=== PATIENT | female | born 1960 ===

== ENCOUNTER 2024-11-01 21:07 | Inpatient (IN) | payer OTHER, SELFPAY ==
[2024-11-01 20:00] VITALS: BP 157/85; PULSE 60; RESP 16; TEMP 36.7; O2SAT 98
[2024-11-01 22:16] VITALS: BMI 18.0
--- NOTE | 2024-11-02 01:12 | PC.ADMIT ---
Pt is a 65 yo female, admitted from [facility] on a 12b for treatment of MDD. She has HX of fibromyalgia/chronic pain, personality d/o, anxiety d/o, ADHD, and ?abdulaziz. She was presented to [facility] with disorganization, mot caring for self, non-medication compliance, and SI. She was reported with primary psychiatric complaints. Medical screen was notable for alcohol. Per unit assessment, Pt was calm and cooperative, A&O X4 but later became anxious and agitated due to the loud noises from a peer outburst/agitation on the hallway. She denies SI/HI/AV/VH. She states I only takes alcohol 6 times in a year and I don't know why they lie that I was intoxicated with alcohol Toxicology was positive for Cannabis, Opiates, Benzo and Ethanol. Pt declined to sign/fill any admission paper work. She c/o chronic headache and insomnia but refused all meds offered. She states all these meds does not work for me . She has a lists of allergies like Melatonin, Stratorra, Motrin, PARMINDER-inhibitors, and iodine. She requested for Dilaudid. Skin/safety check was unremarkable with the exception of scar over the body. She is a high fall risk due to hx of falls at home. Treatment plans and safety tools done, hospitalist contacted for consultation.
[2024-11-02] MEDS: Acetaminophen 325 MG TABLET 650 MG PO (03:53)
[2024-11-02 07:45] VITALS: BP 101/65; PULSE 75; RESP 14; RESP 16; TEMP 37.2; O2SAT 97
[2024-11-02 08:37] LABS: Estimated Average Glucose 105 mg/dL; Hemoglobin A1c % 5.3 % (<6.0)
[2024-11-02 08:54] LABS: Cholesterol 307 mg/dL (<200); HDL Cholesterol 52 mg/dL (>40); LDL Cholesterol Calculated 209 mg/dL (<100); Magnesium 2.1 mg/dL (1.6-2.6); Triglycerides 231 mg/dL (<150)
--- NOTE | 2024-11-02 08:56 | HO.PSYADMNOT ---
HPI Date of Service: 11/02/24 Chief Complaint: Recurrent Major Depression, Alcohol Use Disorder Sources of Information: patient interviewed, chart reviewed and crisis/core team assessment reviewed HPI Subjective Notes: Humphries Warning and Section 12B Narrative: Patient is a 63-year-old female with history of MDD, TRAY, ADHD, borderline personality disorder and alcohol use d/o who was brought in by ambulance to ER d/t suicidal ideation and alcohol intoxication secondary to medication noncompliance, falls and chronic pain. Per crisis report, patient was brought in by ambulance to [facility] for alcohol intoxication, falls and chronic pain. Patient reports that she drank alcohol to stop the pain. She denied SI while talking to the ED staff. Patient reports that she had fallen 4 times at home. Her EVENING OR NIGHT NURSE SUPERVISOR, June, reports patient made a suicidal statement that she wanted to be with her mother, father and brother who have all passed. Her EVENING OR NIGHT NURSE SUPERVISOR reports patient drank 12 alcoholic drinks yesterday and her cannabis use has increased. She has also been off her medications for 5 days and is not using them as prescribed. Her previous EVENING OR NIGHT NURSE SUPERVISOR reports patient texted her saying, I am suicidal, lonely and no one loves me. I miss my son and can not live without him. I want to be with my parents and brother . History of multiple inpatient psychiatric hospitalizations. Patient has psychiatric providers through the [facility]. hx of 1 SA at age 16 via OD on medications. denies hx of SIB. Utox positive for cannabis, opiates, benzodiazepines. ethanol level 153 on arrival to ER on 10/31/24. During admission assessment, pt presents alert and oriented x3. Calm and cooperative. Patient reports feeling anxious and depressed d/t her medical conditions. Patient stated, I fell 4 times at home and grabbed to drinks to help the pain. My aide came and she called the ambulance. I'm not suicidal. I have borderline personality disorder. All I said was if I was I wouldn't feel the pain. What is wrong with you people? . Patient reports she did not have 12 alcoholic beverages and has not been taking her psychiatric medications due to not having refills . Patient reports she only drinks alcohol 5 times a year and this was 1 of those times because she fell . Patient continues to adamantly deny suicidal ideation. Denies HI/VH/AH. Patient declined to sign conditional voluntary. Past Psychiatric History: Outpatient providers through [facility]. Psychologist: Dr. Elo Canada Psychiatrist: unknown History of multiple inpatient psychiatric hospitalizations Denies history of SIB. Patient reports 1 suicide attempt at the age of 16 via overdose on pills which she reports she did for attention . Medical Evaluation Reviewed: Yes PMFSH Family History: Patient is estranged from her 2 children. Parents are . Brother completed suicide. Social History: Lives alone. Has a EVENING OR NIGHT NURSE SUPERVISOR. . Two adult children. Disability. Substance History: Alcohol use disorder and cannabis use. Trauma History: Yes Diagnostics Vital Signs (24Hr): Vital Signs - 24 hr 11/01/24 20:00 11/02/24 07:45 Temperature 98.1 F 98.9 F Pulse Rate 60 75 Respiratory Rate 16 14 Blood Pressure 157/85 H 101/65 Pulse Oximetry 98 97 Oxygen Delivery Method Room Air Room Air BMI result Body Mass Index 18.0 Labs Labs: Laboratory Results - last 48 hr 11/02/24 08:10 Estimat Average Glucose 105 Hemoglobin A1c % 5.3 Magnesium 2.1 Triglycerides 231 H Cholesterol 307 H LDL Cholesterol, Calc 209 H HDL Cholesterol 52 Meds/Allergies Meds Home Medications ?Medication ?Instructions ?Recorded ?Confirmed ?Type acetaminophen 500 mg tablet 1,000 mg PO Q8H PRN Pain 11/02/24 11/02/24 History albuterol sulfate 90 mcg/actuation 2 puff inhalation Q4H PRN wheezing 11/02/24 11/02/24 History aerosol inhaler amlodipine 5 mg tablet 5 mg PO DAILY 11/02/24 11/02/24 History atenolol 25 mg tablet 25 mg PO BID 11/02/24 11/02/24 History baclofen 10 mg tablet 10 mg PO TID PRN Muscle Spasm 11/02/24 11/02/24 History budesonide 32 mcg/actuation nasal 2 spray intranasal DAILY 11/02/24 11/02/24 History spray calcium carbonate 260 mg PO BID 11/02/24 11/02/24 History cyanocobalamin (vitamin B-12) 500 500 mcg PO DAILY 11/02/24 11/02/24 History mcg tablet dextroamphetamine-amphetamine 10 10 mg PO BID 11/02/24 11/02/24 History mg tablet dextroamphetamine-amphetamine ER 20 mg PO DAILY 11/02/24 11/02/24 History 20 mg 24hr capsule,extend release diazepam 10 mg tablet 10 mg PO BID PRN Anxiety 11/02/24 11/02/24 History hydroxyzine HCl 25 mg tablet 25 mg PO BID PRN Anxiety 11/02/24 11/02/24 History ketotifen fumarate 0.025 % (0.035 1 drp ophthalmic (eye) BID PRN 11/02/24 11/02/24 History %) eye drops Allergy Symptoms lidocaine 5 % topical ointment 1 appl topical QID PRN painful 11/02/24 11/02/24 History areas magnesium oxide 420 mg tablet 420 mg PO DAILY 11/02/24 11/02/24 History mupirocin 2 % topical ointment 1 appl topical BID PRN skin 11/02/24 11/02/24 History infection rizatriptan 5 mg disintegrating 5 mg PO DAILY PRN Headache 11/02/24 11/02/24 History tablet sodium chloride 0.65 % nasal spray 2 spray intranasal TID PRN stuffy 11/02/24 11/02/24 History aerosol nose triamcinolone acetonide 0.5 % 1 appl topical BID PRN Itching 11/02/24 11/02/24 History topical ointment Allergies Allergies Allergy/AdvReac Type Severity Reaction Status Date / Time melatonin Allergy Mild Anaphylaxis Verified 11/01/24 23:53 NSAIDS (Non-Steroidal Allergy Mild Anaphylaxis Verified 11/01/24 23:53 Anti-Inflamma aspirin Allergy Unknown Unknown Verified 11/02/24 15:03 latex Allergy Unknown Unknown Verified 11/02/24 15:02 risperidone Allergy Unknown Unknown Verified 11/02/24 15:02 shellfish derived Allergy Unknown Unknown Verified 11/02/24 15:02 atomoxetine [From Strattera] Allergy Anaphylaxis Verified 11/01/24 23:53 iodine Allergy Anaphylaxis Verified 11/01/24 23:53 ibuprofen [From Motrin] AdvReac Intermediate Anaphylaxis Verified 11/01/24 23:53 PARMINDER Inhibitors AdvReac Angioedema Verified 11/01/24 23:[address] contrast AdvReac Facial Uncoded 11/01/24 23:53 Swelling Mental Status Exam Mental Status Exam Narrative: Pt is alert and oriented; behavior is cooperative, and calm; dressed in casual attire; mood is described as anxious ; eye contact appropriate; Speech is normal rate, volume and not pressured; thought process is organized; Thought content is on tx; otherwise pertinent to relevant topics and without any delusional content, paranoid ideations or grandiosity; denies SI/HI/VH/AH. Assessment & Plan Assessment & Plan (1) MDD (major depressive disorder), recurrent episode: Status: Acute Code(s): F33.9 - Major depressive disorder, recurrent, unspecified (2) TRAY (generalized anxiety disorder): Status: Acute Code(s): F41.1 - Generalized anxiety disorder (3) ADHD: Status: Acute Code(s): F90.9 - Attention-deficit hyperactivity disorder, unspecified type (4) Borderline personality disorder: Status: Acute Code(s): F60.3 - Borderline personality disorder (5) Alcohol use disorder: Status: Acute Code(s): F10.90 - Alcohol use, unspecified, uncomplicated Plan Patient is a 63-year-old female with history of MDD, TRAY, ADHD, borderline personality disorder and alcohol use d/o who was brought in by ambulance to ER d/t suicidal ideation and alcohol intoxication secondary to medication noncompliance, falls and chronic pain. Plan: 12B up on 11/07/24 5 minute safety checks Continue home medications CIWA obtain collateral encourage groups discharge planning Patient educated on: diagnosis and medication risk/benefits Reason for continued inpatient stay Substantial Risk for: med/psych decompensation Statement Statement: I have reviewed the history and physical and performed a pertinent examination on my patient. No changes have occurred unless specified. If the History and Physical was not performed prior to admission, the Hospitalist's service will be consulted for completing the admission physical. Time Spent With Patient Time: Total time managing care of this patient today _60___ minutes.
[2024-11-02 09:12] LABS: Free T4 (Free Thyroxine) 0.94 ng/dL (0.71-1.85); Thyroid Stimulating Hormone 2.31 uIU/mL (0.32-4.0)
[2024-11-02 09:23] LABS: Folate 5.2 ng/mL (> or = 4.0); Vitamin B12 987 pg/mL (200-900)
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
--- NOTE | 2024-11-02 12:08 | PHA.MEDREC ---
Pharmacy Consult ? Medication Reconciliation Pharmacy has reviewed the medication reconciliation completed by nursing, utilized list from [place].
[2024-11-02 12:18] VITALS: BP 130/61; PULSE 101
[2024-11-02] MEDS: Dextroamphetamine/Amphetamine XR 10 MG CAP.ER.24H 20 MG PO (12:38)
[2024-11-02] MEDS: hydrOXYzine HCL 25 MG TABLET PO ×2 (12:38→20:54)
[2024-11-02] MEDS: Cyanocobalamin (Vitamin B-12) 500 MCG TABLET PO (12:39)
[2024-11-02] MEDS: Acetaminophen 325 MG TABLET 975 MG PO ×2 (12:39→21:08)
[2024-11-02] MEDS: atenoloL 25 MG TABLET PO ×2 (12:40→20:54)
[2024-11-02] MEDS: Baclofen 10 MG TABLET PO ×2 (13:35→21:03)
[2024-11-02] MEDS: Albuterol Sulfate 90 MCG 8 GM INHALER 2 PUFF INHALE (13:36)
[2024-11-02] MEDS: LORazepam 1 MG TABLET PO ×2 (16:07→21:03)
[2024-11-02 20:05] VITALS: BP 128/71; PULSE 85; TEMP 36.2; O2SAT 99
[2024-11-02] MEDS: Atorvastatin Calcium 10 MG TABLET PO (20:54)
[2024-11-02] MEDS: Magnesium Oxide 400 MG TABLET PO (21:03)
[2024-11-02] MEDS: amLODIPine Besylate 5 MG TABLET PO (21:03)
[2024-11-02] MEDS: Calcium Oyster Shell Elemental 500 MG TABLET PO (21:03)
[2024-11-03] MEDS: Acetaminophen 325 MG TABLET 975 MG PO ×2 (07:17→17:22)
[2024-11-03] MEDS: Baclofen 10 MG TABLET PO ×3 (07:17→21:15)
[2024-11-03 08:00] VITALS: BP 111/68; PULSE 72; RESP 16; TEMP 36.5; O2SAT 98
[2024-11-03] MEDS: Dextroamphetamine/Amphetamine XR 10 MG CAP.ER.24H 20 MG PO (08:25)
[2024-11-03] MEDS: Cyanocobalamin (Vitamin B-12) 500 MCG TABLET PO (08:26)
[2024-11-03] MEDS: Thiamine HCL 100 MG TABLET PO (08:26)
[2024-11-03] MEDS: Calcium Oyster Shell Elemental 500 MG TABLET PO ×2 (08:26→20:56)
[2024-11-03] MEDS: atenoloL 25 MG TABLET PO ×2 (08:27→21:02)
[2024-11-03] MEDS: LORazepam 1 MG TABLET PO ×2 (08:39→21:03)
--- NOTE | 2024-11-03 13:28 | P.PNPSI_ITS ---
Subjective Subjective Date of Service: 11/03/24 Reason For Visit: Recurrent Major Depression, Alcohol Use Disorder Subjective Notes: Section 12B Interim History: Active on unit, social with peers. attending groups. Patient reports feeling frustrated d/t being on the unit. Pt stated, I don't have depression. I have borderline personality disorder. I don't need medication for my mood . denies SI/HI/VH/AH. Pt reports she feel she is integrating well into the unit . Per nursing, slept 5 hours last night. Continue current tx plan. Medication Compliance: Yes Side effects from medications: No Attending Groups: Yes Mental Status Exam Mental Status Exam Narrative: Pt is alert and oriented; behavior is cooperative, and calm; dressed in casual attire; mood is described as frustrated ; eye contact appropriate; Speech is normal rate, volume and not pressured; thought process is organized; Thought content is on tx; denies SI/HI/VH/AH. Diagnostics Vital Signs (24Hr): Vital Signs - 24 hr 11/02/24 20:05 11/03/24 08:00 Temperature 97.1 F 97.7 F Pulse Rate 85 72 Respiratory Rate 16 Blood Pressure 128/71 111/68 Pulse Oximetry 99 98 Oxygen Delivery Method Room Air Room Air BMI result Body Mass Index 18.0 Labs Labs: Laboratory Results - last 48 hr 11/02/24 08:10 Estimat Average Glucose 105 Hemoglobin A1c % 5.3 Magnesium 2.1 Triglycerides 231 H Cholesterol 307 H LDL Cholesterol, Calc 209 H HDL Cholesterol 52 Vitamin B12 987 H Folate 5.2 TSH 2.31 Free T4 0.94 Medications Medications Current Medications Acetaminophen (Acetaminophen 325 Mg Tablet) 975 mg PO Q8H PRN PRN Reason: Pain Last Admin: 11/03/24 07:17 Dose: 975 mg Al Hydroxide/Mg Hydroxide (Magnesium Hydrox/Alum Hydrox 30 Ml Oral.Susp) 30 ml PO Q6H PRN PRN Reason: Heartburn/Nausea Albuterol Sulfate (Albuterol Sulfate 90 Mcg 8 Gm Inhaler) 2 puff INHALE Q4H PRN PRN Reason: wheezing Last Admin: 11/02/24 13:36 Dose: 2 puff Amlodipine Besylate (Amlodipine Besylate 5 Mg Tablet) 5 mg PO BEDTIME [facility]; Protocol Last Admin: 11/02/24 21:03 Dose: 5 mg Amphetamine/Dextroamphetamine (Dextroamphetamine/Amphetamine Xr 10 Mg Cap.Er.24h) 20 mg PO DAILY [facility] Last Admin: 11/03/24 08:25 Dose: 20 mg Atenolol (Atenolol 25 Mg Tablet) 25 mg PO BID [facility]; Protocol Last Admin: 11/03/24 08:27 Dose: 25 mg Atorvastatin Calcium (Atorvastatin Calcium 10 Mg Tablet) 10 mg PO BEDTIME [facility] Last Admin: 11/02/24 20:54 Dose: 10 mg Baclofen (Baclofen 10 Mg Tablet) 10 mg PO TID PRN PRN Reason: Muscle Spasm Last Admin: 11/03/24 07:17 Dose: 10 mg Calcium Carbonate (Calcium Oyster Shell Elemental 500 Mg Tablet) 500 mg PO BID [facility] Last Admin: 11/03/24 08:26 Dose: 500 mg Cyanocobalamin (Cyanocobalamin (Vitamin B-12) 500 Mcg Tablet) 500 mcg PO DAILY [facility] Last Admin: 11/03/24 08:26 Dose: 500 mcg Diazepam (Diazepam 5 Mg Tablet) 10 mg PO BID PRN PRN Reason: Anxiety Fluticasone Propionate (Fluticasone Propionate Nasal 16 Gm [place]) 2 spray NOSTRIL-B DAILY [facility] Last Admin: 11/03/24 08:28 Dose: Not Given Hydroxyzine HCl (Hydroxyzine Hcl 25 Mg Tablet) 25 mg PO Q6H PRN PRN Reason: mild anxiety Last Admin: 11/02/24 20:54 Dose: 25 mg Ketotifen Fumarate (Ketotifen Fumarate 0.025% Oph 5 Ml Drpbtl) 1 drop EYE-BOTH BID PRN PRN Reason: Allergy Symptoms Lidocaine (Lidocaine 5 % Ointment 35 Gm) 1 appl TOPICAL QID PRN; Protocol PRN Reason: painful areas Lorazepam (Lorazepam 1 Mg Tablet) 1 mg PO Q2H PRN PRN Reason: CIWA 8-11 Last Admin: 11/03/24 08:39 Dose: 1 mg Lorazepam (Lorazepam 1 Mg Tablet) 2 mg PO Q2H PRN PRN Reason: CIWA 12-15 Lorazepam (Lorazepam 1 Mg Tablet) 3 mg PO Q2H PRN PRN Reason: CIWA > 15, and call Magnesium Hydroxide (Milk Of Magnesia 30 Ml Oral.Susp) 30 ml PO DAILY PRN PRN Reason: Constipation Magnesium Oxide (Magnesium Oxide 400 Mg Tablet) 400 mg PO BEDTIME [facility] Last Admin: 11/02/24 21:03 Dose: 400 mg Mupirocin (Mupirocin 2 % Oint 22 Gm Tube) 1 appl TOPICAL BID PRN; Protocol PRN Reason: skin infection Nicotine Polacrilex (Nicotine Polacrilex 2 Mg Gum) 4 mg BUCCAL Q2H PRN PRN Reason: Nicotine Cravings Non-Formulary Medication (Ofloxacin Otic) 10 drop EAR-BOTH BID [facility] Non-Formulary Medication (Rizatriptan) 5 mg PO DAILY PRN PRN Reason: Headache Sodium Chloride (Sodium Chloride 0.65 % Nasal 44 Ml Sprbtl) 2 spray NOSTRIL-B TID PRN PRN Reason: stuffy nose Thiamine HCl (Thiamine Hcl 100 Mg Tablet) 100 mg PO DAILY [facility] Last Admin: 11/03/24 08:26 Dose: 100 mg Trazodone HCl (Trazodone Hcl 50 Mg Tablet) 50 mg PO BEDTIME MRX1 PRN PRN Reason: Insomnia Triamcinolone Acetonide (Triamcinolone Acet 0.5 % Oint 15 Gm Tube) 1 appl TOPICAL BID PRN PRN Reason: Itching Allergies Allergies Allergy/AdvReac Type Severity Reaction Status Date / Time melatonin Allergy Mild Anaphylaxis Verified 11/01/24 23:53 NSAIDS (Non-Steroidal Allergy Mild Anaphylaxis Verified 11/01/24 23:53 Anti-Inflamma aspirin Allergy Unknown Unknown Verified 11/02/24 15:03 latex Allergy Unknown Unknown Verified 11/02/24 15:02 risperidone Allergy Unknown Unknown Verified 11/02/24 15:02 shellfish derived Allergy Unknown Unknown Verified 11/02/24 15:02 atomoxetine [From Strattera] Allergy Anaphylaxis Verified 11/01/24 23:53 iodine Allergy Anaphylaxis Verified 11/01/24 23:53 ibuprofen [From Motrin] AdvReac Intermediate Anaphylaxis Verified 11/01/24 23:53 PARMINDER Inhibitors AdvReac Angioedema Verified 11/01/24 23:[address] contrast AdvReac Facial Uncoded 11/01/24 23:53 Swelling Assessment & Plan Assessment & Plan (1) MDD (major depressive disorder), recurrent episode: Status: Acute Code(s): F33.9 - Major depressive disorder, recurrent, unspecified (2) TRAY (generalized anxiety disorder): Status: Acute Code(s): F41.1 - Generalized anxiety disorder (3) ADHD: Status: Acute Code(s): F90.9 - Attention-deficit hyperactivity disorder, unspecified type (4) Borderline personality disorder: Status: Acute Code(s): F60.3 - Borderline personality disorder (5) Alcohol use disorder: Status: Acute Code(s): F10.90 - Alcohol use, unspecified, uncomplicated Plan Patient is a 63-year-old female with history of MDD, TRAY, ADHD, borderline p ersonality disorder and alcohol use d/o who was brought in by ambulance to ER d/t suicidal ideation and alcohol intoxication secondary to medication noncompliance, falls and chronic pain. Plan: 12B up on 11/07/24 5 minute safety checks Continue home medications CIWA obtain collateral encourage groups discharge planning 11/03: Active on unit, social with peers. attending groups. Patient reports feeling frustrated d/t being on the unit. Pt stated, I don't have depression. I have borderline personality disorder. I don't need medication for my mood . denies SI/HI/VH/AH. Pt reports she feel she is integrating well into the unit . Per nursing, slept 5 hours last night. Continue current tx plan. Patient educated on: diagnosis, medication risk/benefits and therapeutic strategies Reason for continued inpatient stay Substantial Risk for: med/psych decompensation Time Spent With Patient Time: Total time managing care of this patient today _20___ minutes.
[2024-11-03] MEDS: hydrOXYzine HCL 25 MG TABLET PO ×2 (13:30→21:15)
[2024-11-03] MEDS: LORazepam 1 MG TABLET 2 MG PO (16:24)
[2024-11-03 20:41] VITALS: BP 132/79; PULSE 66; RESP 16; TEMP 36.6; O2SAT 98
[2024-11-03] MEDS: Magnesium Oxide 400 MG TABLET PO (20:57)
[2024-11-03] MEDS: amLODIPine Besylate 5 MG TABLET PO (20:57)
[2024-11-04 07:40] VITALS: BP 126/77; PULSE 75; RESP 16; TEMP 36.9; O2SAT 98
[2024-11-04] MEDS: atenoloL 25 MG TABLET PO ×2 (08:01→22:41)
[2024-11-04] MEDS: Calcium Oyster Shell Elemental 500 MG TABLET PO ×2 (08:01→22:44)
[2024-11-04] MEDS: Thiamine HCL 100 MG TABLET PO (08:01)
[2024-11-04] MEDS: Dextroamphetamine/Amphetamine XR 10 MG CAP.ER.24H 20 MG PO (08:02)
[2024-11-04] MEDS: Cyanocobalamin (Vitamin B-12) 500 MCG TABLET PO (08:02)
[2024-11-04] MEDS: Baclofen 10 MG TABLET PO ×2 (08:14→22:44)
[2024-11-04] MEDS: Acetaminophen 325 MG TABLET 975 MG PO ×2 (08:14→22:46)
[2024-11-04] MEDS: hydrOXYzine HCL 25 MG TABLET PO ×2 (09:00→22:46)
[2024-11-04] MEDS: Sodium Chloride 0.65 % Nasal 44 ML SPRBTL 2 SPRAY NOSTRIL-B (09:00)
[2024-11-04] MEDS: Ketotifen Fumarate 0.025% Oph 5 ML DRPBTL 1 DROP EYE-BOTH (09:03)
--- NOTE | 2024-11-04 09:20 | P.PNPSI_ITS ---
Subjective Subjective Date of Service: 11/04/24 Reason For Visit: Recurrent Major Depression, Alcohol Use Disorder Interim History: Active on unit, social with peers. attending groups. Patient reports feeling better ; pt stated, I feel like I'm doing so much better. I was out of my room all day working on puzzles and talking to people . denies SI/HI/VH/AH. She denies withdrawal symptoms; DC CIWA. Continue Valium 10mg PO BID PRN. Medication Compliance: Yes Side effects from medications: No Attending Groups: Yes Mental Status Exam Mental Status Exam Narrative: Pt is alert and oriented; behavior is cooperative, and calm; dressed in casual attire; mood is described as better ; eye contact appropriate; Speech is normal rate, volume and not pressured; thought process is organized; Thought content is on tx; denies SI/HI/VH/AH. Diagnostics Vital Signs (24Hr): Vital Signs - 24 hr 11/03/24 20:41 11/04/24 07:40 Temperature 98 F 98.4 F Pulse Rate 66 75 Respiratory Rate 16 16 Blood Pressure 132/79 126/77 Pulse Oximetry 98 98 Oxygen Delivery Method Room Air Room Air BMI result Body Mass Index 18.0 Labs Labs: Laboratory Results - last 48 hr 11/02/24 08:10 Vitamin B12 987 H Folate 5.2 Medications Medications Current Medications Acetaminophen (Acetaminophen 325 Mg Tablet) 975 mg PO Q8H PRN PRN Reason: Pain Last Admin: 11/04/24 08:14 Dose: 975 mg Al Hydroxide/Mg Hydroxide (Magnesium Hydrox/Alum Hydrox 30 Ml Oral.Susp) 30 ml PO Q6H PRN PRN Reason: Heartburn/Nausea Albuterol Sulfate (Albuterol Sulfate 90 Mcg 8 Gm Inhaler) 2 puff INHALE Q4H PRN PRN Reason: wheezing Last Admin: 11/02/24 13:36 Dose: 2 puff Amlodipine Besylate (Amlodipine Besylate 5 Mg Tablet) 5 mg PO BEDTIME [facility]; Protocol Last Admin: 11/03/24 20:57 Dose: 5 mg Amphetamine/Dextroamphetamine (Dextroamphetamine/Amphetamine Xr 10 Mg Cap.Er.24h) 20 mg PO DAILY [facility] Last Admin: 11/04/24 08:02 Dose: 20 mg Atenolol (Atenolol 25 Mg Tablet) 25 mg PO BID [facility]; Protocol Last Admin: 11/04/24 08:01 Dose: 25 mg Atorvastatin Calcium (Atorvastatin Calcium 10 Mg Tablet) 10 mg PO BEDTIME [facility] Last Admin: 11/03/24 21:43 Dose: Not Given Baclofen (Baclofen 10 Mg Tablet) 10 mg PO TID PRN PRN Reason: Muscle Spasm Last Admin: 11/04/24 08:14 Dose: 10 mg Calcium Carbonate (Calcium Oyster Shell Elemental 500 Mg Tablet) 500 mg PO BID [facility] Last Admin: 11/04/24 08:01 Dose: 500 mg Capsaicin (Capsaicin 0.025% Cream 60 Gm Tube) 1 appl TOPICAL TID PRN; Protocol PRN Reason: joint pain Cyanocobalamin (Cyanocobalamin (Vitamin B-12) 500 Mcg Tablet) 500 mcg PO DAILY [facility] Last Admin: 11/04/24 08:02 Dose: 500 mcg Diazepam (Diazepam 5 Mg Tablet) 10 mg PO BID PRN PRN Reason: Anxiety Fluticasone Propionate (Fluticasone Propionate Nasal 16 Gm [place]) 2 spray NOSTRIL-B DAILY [facility] Last Admin: 11/04/24 08:03 Dose: Not Given Hydroxyzine HCl (Hydroxyzine Hcl 25 Mg Tablet) 25 mg PO Q6H PRN PRN Reason: mild anxiety Last Admin: 11/04/24 09:00 Dose: 25 mg Ketotifen Fumarate (Ketotifen Fumarate 0.025% Oph 5 Ml Drpbtl) 1 drop EYE-BOTH BID PRN PRN Reason: Allergy Symptoms Last Admin: 11/04/24 09:03 Dose: 1 drop Lidocaine (Lidocaine 5 % Ointment 35 Gm) 1 appl TOPICAL QID PRN; Protocol PRN Reason: painful areas Lorazepam (Lorazepam 1 Mg Tablet) 1 mg PO Q2H PRN PRN Reason: CIWA 8-11 Last Admin: 11/03/24 21:03 Dose: 1 mg Lorazepam (Lorazepam 1 Mg Tablet) 2 mg PO Q2H PRN PRN Reason: CIWA 12-15 Last Admin: 11/03/24 16:24 Dose: 2 mg Lorazepam (Lorazepam 1 Mg Tablet) 3 mg PO Q2H PRN PRN Reason: CIWA > 15, and call Magnesium Hydroxide (Milk Of Magnesia 30 Ml Oral.Susp) 30 ml PO DAILY PRN PRN Reason: Constipation Magnesium Oxide (Magnesium Oxide 400 Mg Tablet) 400 mg PO BEDTIME [facility] Last Admin: 11/03/24 20:57 Dose: 400 mg Mupirocin (Mupirocin 2 % Oint 22 Gm Tube) 1 appl TOPICAL BID PRN; Protocol PRN Reason: skin infection Nicotine Polacrilex (Nicotine Polacrilex 2 Mg Gum) 4 mg BUCCAL Q2H PRN PRN Reason: Nicotine Cravings Non-Formulary Medication (Ofloxacin Otic) 10 drop EAR-BOTH BID [facility] Non-Formulary Medication (Rizatriptan) 5 mg PO DAILY PRN PRN Reason: Headache Sodium Chloride (Sodium Chloride 0.65 % Nasal 44 Ml Sprbtl) 2 spray NOSTRIL-B TID PRN PRN Reason: stuffy nose Last Admin: 11/04/24 09:00 Dose: 2 spray Thiamine HCl (Thiamine Hcl 100 Mg Tablet) 100 mg PO DAILY [facility] Last Admin: 11/04/24 08:01 Dose: 100 mg Trazodone HCl (Trazodone Hcl 50 Mg Tablet) 50 mg PO BEDTIME MRX1 PRN PRN Reason: Insomnia Triamcinolone Acetonide (Triamcinolone Acet 0.5 % Oint 15 Gm Tube) 1 appl TOPICAL BID PRN PRN Reason: Itching Allergies Allergies Allergy/AdvReac Type Severity Reaction Status Date / Time melatonin Allergy Mild Anaphylaxis Verified 11/01/24 23:53 NSAIDS (Non-Steroidal Allergy Mild Anaphylaxis Verified 11/01/24 23:53 Anti-Inflamma aspirin Allergy Unknown Unknown Verified 11/02/24 15:03 latex Allergy Unknown Unknown Verified 11/02/24 15:02 risperidone Allergy Unknown Unknown Verified 11/02/24 15:02 shellfish derived Allergy Unknown Unknown Verified 11/02/24 15:02 atomoxetine [From Strattera] Allergy Anaphylaxis Verified 11/01/24 23:53 iodine Allergy Anaphylaxis Verified 11/01/24 23:53 ibuprofen [From Motrin] AdvReac Intermediate Anaphylaxis Verified 11/01/24 23:53 PARMINDER Inhibitors AdvReac Angioedema Verified 11/01/24 23:[address] contrast AdvReac Facial Uncoded 11/01/24 23:53 Swelling Assessment & Plan Assessment & Plan (1) MDD (major depressive disorder), recurrent episode: Status: Acute Code(s): F33.9 - Major depressive disorder, recurrent, unspecified (2) TRAY (generalized anxiety disorder): Status: Acute Code(s): F41.1 - Generalized anxiety disorder (3) ADHD: Status: Acute Code(s): F90.9 - Attention-deficit hyperactivity disorder, unspecified type (4) Borderline personality disorder: Status: Acute Code(s): F60.3 - Borderline personality disorder (5) Alcohol use disorder: Status: Acute Code(s): F10.90 - Alcohol use, unspecified, uncomplicated Plan Patient is a 63-year-old female with history of MDD, TRAY, ADHD, borderline personality disorder and alcohol use d/o who was brought in by ambulance to ER d/t suicidal ideation and alcohol intoxication secondary to medication noncompliance, falls and chronic pain. Plan: 12B up on 11/07/24 5 minute safety checks Continue home medications CIWA obtain collateral encourage groups discharge planning 11/04: Active on unit, social with peers. attending groups. Patient reports feeling better ; pt stated, I feel like I'm doing so much better. I was out of my room all day working on puzzles and talking to people . denies SI/HI/VH/AH. She denies withdrawal symptoms; DC CIWA. Continue Valium 10mg PO BID PRN. Patient educated on: diagnosis, medication risk/benefits and therapeutic strategies Reason for continued inpatient stay Substantial Risk for: med/psych decompensation Time Spent With Patient Time: Total time managing care of this patient today _20___ minutes.
[2024-11-04] MEDS: Albuterol Sulfate 90 MCG 8 GM INHALER 2 PUFF INHALE ×2 (13:28→22:19)
[2024-11-04] MEDS: diazePAM 5 MG TABLET 10 MG PO ×2 (13:35→22:46)
[2024-11-04 19:38] VITALS: BP 136/72; PULSE 87; RESP 16; TEMP 36.4; O2SAT 98
[2024-11-04 22:41] VITALS: BP 130/66; PULSE 68
[2024-11-04] MEDS: Magnesium Oxide 400 MG TABLET PO (22:41)
[2024-11-04 22:44] VITALS: BP 130/66
[2024-11-04] MEDS: amLODIPine Besylate 5 MG TABLET PO (22:44)
[2024-11-04] MEDS: Capsaicin 0.025% Cream 60 GM TUBE 1 APPL TOPICAL (23:48)
[2024-11-05 07:45] VITALS: BP 105/61; PULSE 66; RESP 18; TEMP 36.9; O2SAT 98
[2024-11-05] MEDS: Baclofen 10 MG TABLET PO ×3 (08:19→21:58)
[2024-11-05] MEDS: atenoloL 25 MG TABLET PO ×2 (08:19→22:00)
[2024-11-05] MEDS: hydrOXYzine HCL 25 MG TABLET PO ×3 (08:20→21:58)
[2024-11-05] MEDS: Calcium Oyster Shell Elemental 500 MG TABLET PO ×2 (08:20→21:58)
[2024-11-05] MEDS: Dextroamphetamine/Amphetamine XR 10 MG CAP.ER.24H 20 MG PO (08:20)
[2024-11-05] MEDS: Cyanocobalamin (Vitamin B-12) 500 MCG TABLET PO (08:20)
[2024-11-05] MEDS: Acetaminophen 325 MG TABLET 975 MG PO ×2 (08:20→22:03)
--- NOTE | 2024-11-05 08:47 | P.PNPSI_ITS ---
Subjective Subjective Date of Service: 11/05/24 Reason For Visit: Recurrent Major Depression, Alcohol Use Disorder Subjective Notes: Section 12B Interim History: Patient reports feeling good today; observed napping in the morning. pt requesting to restart Adderall IR 10mg BID. Adderall IR restarted. denies SI/HI/VH/AH. 12b up on 11/07/24. Medication Compliance: Yes Side effects from medications: No Attending Groups: Yes Mental Status Exam Mental Status Exam Narrative: Pt is alert and oriented; behavior is cooperative, and calm; dressed in casual attire; mood is described as good ; eye contact appropriate; Speech is normal rate, volume and not pressured; thought process is organized; Thought content is on tx; denies SI/HI/VH/AH. Diagnostics Vital Signs (24Hr): Vital Signs - 24 hr 11/04/24 19:38 11/04/24 22:41 11/04/24 22:44 Temperature 97.6 F Pulse Rate 87 68 Respiratory Rate 16 Blood Pressure 136/72 130/66 130/66 Pulse Oximetry 98 Oxygen Delivery Method Room Air 11/05/24 07:45 Temperature 98.5 F Pulse Rate 66 Respiratory Rate 18 Blood Pressure 105/61 Pulse Oximetry 98 Oxygen Delivery Method Room Air BMI result Body Mass Index 18.0 Medications Medications Current Medications Acetaminophen (Acetaminophen 325 Mg Tablet) 975 mg PO Q8H PRN PRN Reason: Pain Last Admin: 11/05/24 08:20 Dose: 975 mg Al Hydroxide/Mg Hydroxide (Magnesium Hydrox/Alum Hydrox 30 Ml Oral.Susp) 30 ml PO Q6H PRN PRN Reason: Heartburn/Nausea Albuterol Sulfate (Albuterol Sulfate 90 Mcg 8 Gm Inhaler) 2 puff INHALE Q4H PRN PRN Reason: wheezing Last Admin: 11/04/24 22:19 Dose: 2 puff Amlodipine Besylate (Amlodipine Besylate 5 Mg Tablet) 5 mg PO BEDTIME [facility]; Protocol Last Admin: 11/04/24 22:44 Dose: 5 mg Amphetamine/Dextroamphetamine (Dextroamphetamine/Amphetamine Xr 10 Mg Cap.Er.24h) 20 mg PO DAILY [facility] Last Admin: 11/05/24 08:20 Dose: 20 mg Atenolol (Atenolol 25 Mg Tablet) 25 mg PO BID [facility]; Protocol Last Admin: 11/05/24 08:19 Dose: 25 mg Atorvastatin Calcium (Atorvastatin Calcium 10 Mg Tablet) 10 mg PO BEDTIME [facility] Last Admin: 11/04/24 22:48 Dose: Not Given Baclofen (Baclofen 10 Mg Tablet) 10 mg PO TID PRN PRN Reason: Muscle Spasm Last Admin: 11/05/24 08:19 Dose: 10 mg Calcium Carbonate (Calcium Oyster Shell Elemental 500 Mg Tablet) 500 mg PO BID [facility] Last Admin: 11/05/24 08:20 Dose: 500 mg Capsaicin (Capsaicin 0.025% Cream 60 Gm Tube) 1 appl TOPICAL TID PRN; Protocol PRN Reason: joint pain Last Admin: 11/04/24 23:48 Dose: 1 appl Cyanocobalamin (Cyanocobalamin (Vitamin B-12) 500 Mcg Tablet) 500 mcg PO DAILY [facility] Last Admin: 11/05/24 08:20 Dose: 500 mcg Diazepam (Diazepam 5 Mg Tablet) 10 mg PO BID PRN PRN Reason: Anxiety Last Admin: 11/04/24 22:46 Dose: 10 mg Fluticasone Propionate (Fluticasone Propionate Nasal 16 Gm [place]) 2 spray NOSTRIL-B DAILY PRN PRN Reason: Allergic Symptoms Hydroxyzine HCl (Hydroxyzine Hcl 25 Mg Tablet) 25 mg PO Q6H PRN PRN Reason: mild anxiety Last Admin: 11/05/24 08:20 Dose: 25 mg Ketotifen Fumarate (Ketotifen Fumarate 0.025% Oph 5 Ml Drpbtl) 1 drop EYE-BOTH BID PRN PRN Reason: Allergy Symptoms Last Admin: 11/04/24 09:03 Dose: 1 drop Lidocaine (Lidocaine 5 % Ointment 35 Gm) 1 appl TOPICAL QID PRN; Protocol PRN Reason: painful areas Magnesium Hydroxide (Milk Of Magnesia 30 Ml Oral.Susp) 30 ml PO DAILY PRN PRN Reason: Constipation Magnesium Oxide (Magnesium Oxide 400 Mg Tablet) 400 mg PO BEDTIME [facility] Last Admin: 11/04/24 22:41 Dose: 400 mg Mupirocin (Mupirocin 2 % Oint 22 Gm Tube) 1 appl TOPICAL BID PRN; Protocol PRN Reason: skin infection Nicotine Polacrilex (Nicotine Polacrilex 2 Mg Gum) 4 mg BUCCAL Q2H PRN PRN Reason: Nicotine Cravings Non-Formulary Medication (Ofloxacin Otic) 10 drop EAR-BOTH BID [facility] Non-Formulary Medication (Rizatriptan) 5 mg PO DAILY PRN PRN Reason: Headache Sodium Chloride (Sodium Chloride 0.65 % Nasal 44 Ml Sprbtl) 2 spray NOSTRIL-B TID PRN PRN Reason: stuffy nose Last Admin: 11/04/24 09:00 Dose: 2 spray Trazodone HCl (Trazodone Hcl 50 Mg Tablet) 50 mg PO BEDTIME MRX1 PRN PRN Reason: Insomnia Triamcinolone Acetonide (Triamcinolone Acet 0.5 % Oint 15 Gm Tube) 1 appl TOPICAL BID PRN PRN Reason: Itching Allergies Allergies Allergy/AdvReac Type Severity Reaction Status Date / Time melatonin Allergy Mild Anaphylaxis Verified 11/01/24 23:53 NSAIDS (Non-Steroidal Allergy Mild Anaphylaxis Verified 11/01/24 23:53 Anti-Inflamma aspirin Allergy Unknown Unknown Verified 11/02/24 15:03 latex Allergy Unknown Unknown Verified 11/02/24 15:02 risperidone Allergy Unknown Unknown Verified 11/02/24 15:02 shellfish derived Allergy Unknown Unknown Verified 11/02/24 15:02 atomoxetine [From Strattera] Allergy Anaphylaxis Verified 11/01/24 23:53 iodine Allergy Anaphylaxis Verified 11/01/24 23:53 ibuprofen [From Motrin] AdvReac Intermediate Anaphylaxis Verified 11/01/24 23:53 PARMINDER Inhibitors AdvReac Angioedema Verified 11/01/24 23:[address] contrast AdvReac Facial Uncoded 11/01/24 23:53 Swelling Assessment & Plan Assessment & Plan (1) MDD (major depressive disorder), recurrent episode: Status: Acute Code(s): F33.9 - Major depressive disorder, recurrent, unspecified (2) TRAY (generalized anxiety disorder): Status: Acute Code(s): F41.1 - Generalized anxiety disorder (3) ADHD: Status: Acute Code(s): F90.9 - Attention-deficit hyperactivity disorder, unspecified type (4) Borderline personality disorder: Status: Acute Code(s): F60.3 - Borderline personality disorder (5) Alcohol use disorder: Status: Acute Code(s): F10.90 - Alcohol use, unspecified, uncomplicated Plan Patient is a 63-year-old female with history of MDD, TRAY, ADHD, borderline personality disorder and alcohol use d/o who was brought in by ambulance to ER d/t suicidal ideation and alcohol intoxication secondary to medication noncompliance, falls and chronic pain. Plan: 12B up on 11/07/24 5 minute safety checks Continue home medications CIWA obtain collateral encourage groups discharge planning 11/04: Active on unit, social with peers. attending groups. Patient reports feeling better ; pt stated, I feel like I'm doing so much better. I was out of my room all day working on puzzles and talking to people . denies SI/HI/VH/AH. She denies withdrawal symptoms; DC ALBAWA. Continue Valium 10mg PO BID PRN. 11/05: Patient reports feeling good today; observed napping in the morning. pt requesting to restart Adderall IR 10mg BID. Adderall IR restarted. denies SI/HI/VH/AH. 12b up on 11/07/24 Patient educated on: diagnosis, medication risk/benefits and therapeutic strategies Reason for continued inpatient stay Substantial Risk for: med/psych decompensation Time Spent With Patient Time: Total time managing care of this patient today _20___ minutes.
[2024-11-05] MEDS: Capsaicin 0.025% Cream 60 GM TUBE 1 APPL TOPICAL ×2 (09:26→14:50)
[2024-11-05] MEDS: Albuterol Sulfate 90 MCG 8 GM INHALER 2 PUFF INHALE ×2 (14:50→22:06)
[2024-11-05] MEDS: diazePAM 5 MG TABLET 10 MG PO ×2 (14:50→21:59)
[2024-11-05] MEDS: Amphetamine Mixed Salts 10 MG TABLET PO (16:37)
[2024-11-05 20:00] VITALS: BP 144/72; PULSE 68; RESP 16; TEMP 36.9; O2SAT 98
[2024-11-05] MEDS: Magnesium Oxide 400 MG TABLET PO (21:58)
[2024-11-05] MEDS: amLODIPine Besylate 5 MG TABLET PO (21:59)
[2024-11-05] MEDS: Ketotifen Fumarate 0.025% Oph 5 ML DRPBTL 1 DROP EYE-BOTH (22:09)
[2024-11-06] MEDS: Capsaicin 0.025% Cream 60 GM TUBE 1 APPL TOPICAL ×2 (01:07→22:37)
[2024-11-06] MEDS: Lidocaine 5 % Ointment 35 GM 1 APPL TOPICAL (01:31)
[2024-11-06 07:58] VITALS: BP 125/69; PULSE 61; TEMP 36.2; O2SAT 99
[2024-11-06] MEDS: atenoloL 25 MG TABLET PO ×2 (08:10→20:22)
[2024-11-06] MEDS: Dextroamphetamine/Amphetamine XR 10 MG CAP.ER.24H 20 MG PO (08:10)
[2024-11-06] MEDS: Calcium Oyster Shell Elemental 500 MG TABLET PO ×2 (08:10→20:22)
[2024-11-06] MEDS: Cyanocobalamin (Vitamin B-12) 500 MCG TABLET PO (08:10)
[2024-11-06] MEDS: Acetaminophen 325 MG TABLET 975 MG PO ×2 (08:57→20:23)
[2024-11-06] MEDS: hydrOXYzine HCL 25 MG TABLET PO ×2 (08:57→20:20)
[2024-11-06] MEDS: Baclofen 10 MG TABLET PO ×2 (08:57→20:21)
[2024-11-06] MEDS: Amphetamine Mixed Salts 10 MG TABLET PO ×2 (13:14→17:34)
[2024-11-06] MEDS: diazePAM 5 MG TABLET 10 MG PO ×2 (13:14→20:20)
[2024-11-06] MEDS: Fluticasone Propionate Nasal 16 GM SPRAY 2 SPRAY NOSTRIL-B (13:15)
--- NOTE | 2024-11-06 13:32 | HO.PSYCHPN ---
Subjective Subjective Date of Service: 11/06/24 Reason For Visit: Recurrent Major Depression, Alcohol Use Disorder Subjective Notes: Section 12B Interim History: Active on unit, social with peers. Patient continues to report feeling good ; looking forward to discharge tomorrow. Patient reports she plans on following up with her outpatient providers and does not need refills on her scripts. denies SI/HI/VH/AH. 12b up on 11/07/24. Medication Compliance: Yes Side effects from medications: No Attending Groups: Yes Mental Status Exam Mental Status Exam Narrative: Pt is alert and oriented; behavior is cooperative, and calm; dressed in casual attire; mood is described as good ; eye contact appropriate; Speech is normal rate, volume and not pressured; thought process is organized; Thought content is on discharge; denies SI/HI/VH/AH. Diagnostics Vital Signs (24Hr): Vital Signs - 24 hr 11/05/24 20:00 11/06/24 07:58 Temperature 98.4 F 97.2 F Pulse Rate 68 61 Respiratory Rate 16 Blood Pressure 144/72 H 125/69 Pulse Oximetry 98 99 Oxygen Delivery Method Room Air Room Air BMI result Body Mass Index 18.0 Medications Medications Current Medications Acetaminophen (Acetaminophen 325 Mg Tablet) 975 mg PO Q8H PRN PRN Reason: Pain Last Admin: 11/06/24 08:57 Dose: 975 mg Al Hydroxide/Mg Hydroxide (Magnesium Hydrox/Alum Hydrox 30 Ml Oral.Susp) 30 ml PO Q6H PRN PRN Reason: Heartburn/Nausea Albuterol Sulfate (Albuterol Sulfate 90 Mcg 8 Gm Inhaler) 2 puff INHALE Q4H PRN PRN Reason: wheezing Last Admin: 11/05/24 22:06 Dose: 2 puff Amlodipine Besylate (Amlodipine Besylate 5 Mg Tablet) 5 mg PO BEDTIME [facility]; Protocol Last Admin: 11/05/24 21:59 Dose: 5 mg Amphetamine/Dextroamphetamine (Dextroamphetamine/Amphetamine Xr 10 Mg Cap.Er.24h) 20 mg PO DAILY@0800 [facility] Last Admin: 11/06/24 08:10 Dose: 20 mg Amphetamine/Dextroamphetamine (Amphetamine Mixed Salts 10 Mg Tablet) 10 mg PO BID@1300,1700 [facility] Last Admin: 11/06/24 13:14 Dose: 10 mg Atenolol (Atenolol 25 Mg Tablet) 25 mg PO BID [facility]; Protocol Last Admin: 11/06/24 08:10 Dose: 25 mg Atorvastatin Calcium (Atorvastatin Calcium 10 Mg Tablet) 10 mg PO BEDTIME [facility] Last Admin: 11/05/24 22:03 Dose: Not Given Baclofen (Baclofen 10 Mg Tablet) 10 mg PO TID PRN PRN Reason: Muscle Spasm Last Admin: 11/06/24 08:57 Dose: 10 mg Calcium Carbonate (Calcium Oyster Shell Elemental 500 Mg Tablet) 500 mg PO BID [facility] Last Admin: 11/06/24 08:10 Dose: 500 mg Capsaicin (Capsaicin 0.025% Cream 60 Gm Tube) 1 appl TOPICAL TID PRN; Protocol PRN Reason: joint pain Last Admin: 11/06/24 01:07 Dose: 1 appl Cyanocobalamin (Cyanocobalamin (Vitamin B-12) 500 Mcg Tablet) 500 mcg PO DAILY [facility] Last Admin: 11/06/24 08:10 Dose: 500 mcg Diazepam (Diazepam 5 Mg Tablet) 10 mg PO BID PRN PRN Reason: Anxiety Last Admin: 11/06/24 13:14 Dose: 10 mg Fluticasone Propionate (Fluticasone Propionate Nasal 16 Gm Parthenon) 2 spray NOSTRIL-B DAILY PRN PRN Reason: Allergic Symptoms Last Admin: 11/06/24 13:15 Dose: 2 spray Hydroxyzine HCl (Hydroxyzine Hcl 25 Mg Tablet) 25 mg PO Q6H PRN PRN Reason: mild anxiety Last Admin: 11/06/24 08:57 Dose: 25 mg Ketotifen Fumarate (Ketotifen Fumarate 0.025% Oph 5 Ml Drpbtl) 1 drop EYE-BOTH BID PRN PRN Reason: Allergy Symptoms Last Admin: 11/05/24 22:09 Dose: 1 drop Lidocaine (Lidocaine 5 % Ointment 35 Gm) 1 appl TOPICAL QID PRN; Protocol PRN Reason: painful areas Last Admin: 11/06/24 01:31 Dose: 1 appl Magnesium Hydroxide (Milk Of Magnesia 30 Ml Oral.Susp) 30 ml PO DAILY PRN PRN Reason: Constipation Magnesium Oxide (Magnesium Oxide 400 Mg Tablet) 400 mg PO BEDTIME [facility] Last Admin: 11/05/24 21:58 Dose: 400 mg Mupirocin (Mupirocin 2 % Oint 22 Gm Tube) 1 appl TOPICAL BID PRN; Protocol PRN Reason: skin infection Nicotine Polacrilex (Nicotine Polacrilex 2 Mg Gum) 4 mg BUCCAL Q2H PRN PRN Reason: Nicotine Cravings Non-Formulary Medication (Ofloxacin Otic) 10 drop EAR-BOTH BID DAVIS Non-Formulary Medication (Rizatriptan) 5 mg PO DAILY PRN PRN Reason: Headache Sodium Chloride (Sodium Chloride 0.65 % Nasal 44 Ml Sprbtl) 2 spray NOSTRIL-B TID PRN PRN Reason: stuffy nose Last Admin: 11/04/24 09:00 Dose: 2 spray Trazodone HCl (Trazodone Hcl 50 Mg Tablet) 50 mg PO BEDTIME MRX1 PRN PRN Reason: Insomnia Triamcinolone Acetonide (Triamcinolone Acet 0.5 % Oint 15 Gm Tube) 1 appl TOPICAL BID PRN PRN Reason: Itching Allergies Allergies Allergy/AdvReac Type Severity Reaction Status Date / Time melatonin Allergy Mild Anaphylaxis Verified 11/01/24 23:53 NSAIDS (Non-Steroidal Allergy Mild Anaphylaxis Verified 11/01/24 23:53 Anti-Inflamma aspirin Allergy Unknown Unknown Verified 11/02/24 15:03 latex Allergy Unknown Unknown Verified 11/02/24 15:02 risperidone Allergy Unknown Unknown Verified 11/02/24 15:02 shellfish derived Allergy Unknown Unknown Verified 11/02/24 15:02 atomoxetine [From Strattera] Allergy Anaphylaxis Verified 11/01/24 23:53 iodine Allergy Anaphylaxis Verified 11/01/24 23:53 ibuprofen [From Motrin] AdvReac Intermediate Anaphylaxis Verified 11/01/24 23:53 PARMINDER Inhibitors AdvReac Angioedema Verified 11/01/24 23:[address] contrast AdvReac Facial Uncoded 11/01/24 23:53 Swelling Assessment & Plan Assessment & Plan (1) MDD (major depressive disorder), recurrent episode: Status: Acute Code(s): F33.9 - Major depressive disorder, recurrent, unspecified (2) TRAY (generalized anxiety disorder): Status: Acute Code(s): F41.1 - Generalized anxiety disorder (3) ADHD: Status: Acute Code(s): F90.9 - Attention-deficit hyperactivity disorder, unspecified type (4) Borderline personality disorder: Status: Acute Code(s): F60.3 - Borderline personality disorder (5) Alcohol use disorder: Status: Acute Code(s): F10.90 - Alcohol use, unspecified, uncomplicated Plan Patient is a 63-year-old female with history of MDD, TRAY, ADHD, borderline personality disorder and alcohol use d/o who was brought in by ambulance to ER d/t suicidal ideation and alcohol intoxication secondary to medication noncompliance, falls and chronic pain. Plan: 12B up on 11/07/24 5 minute safety checks Continue home medications CIWA obtain collateral encourage groups discharge planning 11/04: Active on unit, social with peers. attending groups. Patient reports feeling better ; pt stated, I feel like I'm doing so much better. I was out of my room all day working on puzzles and talking to people . denies SI/HI/VH/AH. She denies withdrawal symptoms; DC CIWA. Continue Valium 10mg PO BID PRN. 11/05: Patient reports feeling good today; observed napping in the morning. pt requesting to restart Adderall IR 10mg BID. Adderall IR restarted. denies SI/HI/VH/AH. 12b up on 11/07/2411/06: Active on unit, social with peers. Patient continues to report feeling good ; looking forward to discharge tomorrow. Patient reports she plans on following up with her outpatient providers and does not need refills on her scripts. denies SI/HI/VH/AH. 12b up on 11/07/24. Patient educated on: diagnosis, medication risk/benefits and therapeutic strategies Reason for continued inpatient stay Substantial Risk for: stable for discharge Time Spent With Patient Time: Total time managing care of this patient today __20__ minutes.
--- NOTE | 2024-11-06 16:26 | PM.PSYDC ---
DS: Providers Provider Date of Service: 11/06/24 Date of admission: 11/01/24 21:07 Date of discharge: 11/07/24 Primary care physician: Katie Sheth MD Admitting clinician: Chio Ortiz Attending physician on admission: Austin Acevedo Consults: 11/01/24 21:24 Consult to Hospitalist Routine Comment: Consulting Provider: [facility] Hospitalists Reason For Exam: Transfer pt Attending physician on discharge: Austin Acevedo Discharging clinician: Chio Ortiz DS: Diagnosis Discharge Diagnosis (1) MDD (major depressive disorder), recurrent episode: Status: Acute (2) TRAY (generalized anxiety disorder): Status: Acute (3) ADHD: Status: Acute (4) Borderline personality disorder: Status: Acute (5) Alcohol use disorder: Status: Acute DS: Medications Discharge Medications Home Medications: Home Medications ?Medication ?Instructions ?Recorded ?Confirmed acetaminophen 500 mg tablet 1,000 mg PO Q8H PRN Pain 11/02/24 11/02/24 albuterol sulfate 90 mcg/actuation 2 puff inhalation Q4H PRN wheezing 11/02/24 11/02/24 aerosol inhaler amlodipine 5 mg tablet 5 mg PO DAILY 11/02/24 11/02/24 atenolol 25 mg tablet 25 mg PO BID 11/02/24 11/02/24 baclofen 10 mg tablet 10 mg PO TID PRN Muscle Spasm 11/02/24 11/02/24 budesonide 32 mcg/actuation nasal 2 spray intranasal DAILY 11/02/24 11/02/24 spray calcium carbonate 260 mg PO BID 11/02/24 11/02/24 cyanocobalamin (vitamin B-12) 500 500 mcg PO DAILY 11/02/24 11/02/24 mcg tablet dextroamphetamine-amphetamine 10 10 mg PO BID 11/02/24 11/02/24 mg tablet dextroamphetamine-amphetamine ER 20 mg PO DAILY 11/02/24 11/02/24 20 mg 24hr capsule,extend release diazepam 10 mg tablet 10 mg PO BID PRN Anxiety 11/02/24 11/02/24 hydroxyzine HCl 25 mg tablet 25 mg PO BID PRN Anxiety 11/02/24 11/02/24 ketotifen fumarate 0.025 % (0.035 1 drp ophthalmic (eye) BID PRN 11/02/24 11/02/24 %) eye drops Allergy Symptoms lidocaine 5 % topical ointment 1 appl topical QID PRN painful 11/02/24 11/02/24 areas magnesium oxide 420 mg tablet 420 mg PO DAILY 11/02/24 11/02/24 mupirocin 2 % topical ointment 1 appl topical BID PRN skin 11/02/24 11/02/24 infection rizatriptan 5 mg disintegrating 5 mg PO DAILY PRN Headache 11/02/24 11/02/24 tablet sodium chloride 0.65 % nasal spray 2 spray intranasal TID PRN stuffy 11/02/24 11/02/24 aerosol nose triamcinolone acetonide 0.5 % 1 appl topical BID PRN Itching 11/02/24 11/02/24 topical ointment Previous Rx's ?Medication ?Instructions ?Recorded Ofloxacin Otic 10 drp otic (ears) BID ##0 11/06/24 atorvastatin 10 mg tablet 10 mg PO BEDTIME 30 days #30 tabs 11/06/24 capsaicin 0.025 % topical cream 1 appl topical TID PRN joint pain 11/06/24 30 days #25 grams Mental Status Exam Mental Status Exam Narrative: Pt is alert and oriented; behavior is cooperative, and calm; dressed in casual attire; mood is described as good ; eye contact appropriate; Speech is normal rate, volume and not pressured; thought process is organized; Thought content is on discharge; denies SI/HI/VH/AH. DS: Summary Hospital Course Hospital Course: Patient is a 63-year-old female with history of MDD, TRAY, ADHD, borderline personality disorder and alcohol use d/o who was brought in by ambulance to ER d/t suicidal ideation and alcohol intoxication secondary to medication noncompliance, falls and chronic pain. Per crisis report, patient was brought in by ambulance to [facility] for alcohol intoxication, falls and chronic pain. Patient reports that she drank alcohol to stop the pain. She denied SI while talking to the ED staff. Patient reports that she had fallen 4 times at home. Her BUILDING CONSULTANT, June, reports patient made a suicidal statement that she wanted to be with her mother, father and brother who have all passed. Her BUILDING CONSULTANT reports patient drank 12 alcoholic drinks yesterday and her cannabis use has increased. She has also been off her medications for 5 days and is not using them as prescribed. Her previous BUILDING CONSULTANT reports patient texted her saying, I am suicidal, lonely and no one loves me. I miss my son and can not live without him. I want to be with my parents and brother . History of multiple inpatient psychiatric hospitalizations. [facility]. hx of 1 SA at age 16 via OD on medications. denies hx of SIB. Utox positive for cannabis, opiates, benzodiazepines. ethanol level 153 on arrival to ER on 10/31/24. During admission assessment, pt presents alert and oriented x3. Calm and cooperative. Patient reports feeling anxious and depressed d/t her medical conditions. Patient stated, I fell 4 times at home and grabbed to drinks to help the pain. My aide came and she called the ambulance. I'm not suicidal. I have borderline personality disorder. All I said was if I was I wouldn't feel the pain. What is wrong with you people? . Patient reports she did not have 12 alcoholic beverages and has not been taking her psychiatric medications due to not having refills . Patient reports she only drinks alcohol 5 times a year and this was 1 of those times because she fell . Patient continues to adamantly deny suicidal ideation. Denies HI/VH/AH. Patient declined to sign conditional voluntary. Plan: 12B up on 11/07/24 5 minute safety checks Continue home medications CIWA obtain collateral encourage groups discharge planning Active on unit, social with peers. attending groups. Patient reports feeling better ; pt stated, I feel like I'm doing so much better. I was out of my room all day working on puzzles and talking to people . denies SI/HI/VH/AH. She denies withdrawal symptoms; DC CIWA. Continue Valium 10mg PO BID PRN. Patient reports feeling good today; observed napping in the morning. pt requesting to restart Adderall IR 10mg BID. Adderall IR restarted. denies SI/HI/VH/AH. 12b up on 11/07/24 Active on unit, social with peers. Patient continues to report feeling good ; looking forward to discharge tomorrow. Patient reports she plans on following up with her outpatient providers and does not need refills on her scripts. denies SI/HI/VH/AH. 12b up on 11/07/24. Status at Discharge Cognitive/behavioral status at discharge: Patient has insight and demonstrates good judgment in terms of wanting to pursue treatment. Patient has a safety plan that includes presenting to the closest ER or calling 911 if feeling unsafe. Functional status at discharge: independent ambulation Overall status at discharge: patient is back to baseline Time Spent with Patient Time attestation: Total time managing care of this patient today _20___ minutes. Time spent: Less than 30 minutes Discharge Plan Discharge Anticipated Discharge Date/Time: 11/07/24 11:00 Patient Disposition: Home, Self-Care Discharge Diagnosis: MDD, TRAY, ADHD, Borderline personality d/o, Alcohol use d/o Referrals: Therapy & Psychiatry [Other] - 1 Week Referral Note: Please follow up with [facility] regarding [facility] appointments. Katie Sheth MD [Primary Care Provider, Internal Medicine] - 1 Week Referral Note: 11-07-24 Your primary care provider has been notified of your discharge and will be contacting you with your date and time of your follow up appt. Discharge Medications: New Ofloxacin Otic 10 drp otic (ears) BID Qty: 0 0RF atorvastatin 10 mg Tablet 10 mg PO BEDTIME 30 Days Qty: 30 0RF capsaicin 0.025 % Cream 1 appl topical TID PRN (Reason: joint pain) 30 Days Qty: 25 0RF Protocol: Apply to: Apply to: affected area Continued budesonide 32 mcg/actuation Grand Chain,Non-Aerosol 2 spray INTRANASAL DAILY Rx Instructions: administer into each nostril magnesium oxide 420 mg Tablet 420 mg PO DAILY ketotifen fumarate 0.025 % (0.035 %) Drops 1 drp OPHTHALMIC (EYE) BID PRN (Reason: Allergy Symptoms) Rx Instructions: administer at least 8 hours apart dextroamphetamine-amphetamine 10 mg Tablet 10 mg PO BID Rx Instructions: administer doses at least 4-6 hours apart atenolol 25 mg Tablet 25 mg PO BID triamcinolone acetonide 0.5 % Ointment 1 appl TOPICAL BID PRN (Reason: Itching) amlodipine 5 mg Tablet 5 mg PO DAILY acetaminophen 500 mg Tablet 1,000 mg PO Q8H PRN (Reason: Pain) cyanocobalamin (vitamin B-12) 500 mcg Tablet 500 mcg PO DAILY dextroamphetamine-amphetamine 20 mg Capsule,Extended Release 24hr 20 mg PO DAILY baclofen 10 mg Tablet 10 mg PO TID PRN (Reason: Muscle Spasm) hydroxyzine HCl 25 mg Tablet 25 mg PO BID PRN (Reason: Anxiety) mupirocin 2 % Ointment 1 appl TOPICAL BID PRN (Reason: skin infection) diazepam 10 mg Tablet 10 mg PO BID PRN (Reason: Anxiety) albuterol sulfate 90 mcg/actuation HFA aerosol inhaler 2 puff inhalation Q4H PRN (Reason: wheezing) rizatriptan 5 mg Tablet,Disintegrating 5 mg PO DAILY PRN (Reason: Headache) Rx Instructions: place one tab on the tongue as directed (take as directed at the onset of headache. May repeat one time in 2 hours if needed do not exceed 6 doses per 24 hrs sodium chloride 0.65 % Aerosol,Grand Chain 2 spray INTRANASAL TID PRN (Reason: stuffy nose) calcium carbonate 260 mg calcium (650 mg) Tablet,Chewable 260 mg PO BID lidocaine 5 % Ointment 1 appl TOPICAL QID PRN (Reason: painful areas) Discharge Orders: Discharge Order (Routine); Ordered 11/07/24 Ordered By: Chio Ortiz Diet: Regular diet Activity on Discharge: As tolerated Stand Alone Forms: Patient Portal Discharge page, Community Support Print Language: Egyptian Care Plan Goals: Maintain mood and safe behaviors Take medications as prescribed Continue to pursue sobriety Practice coping skills Continue with outpatient providers and reach out to them as needed Health Concerns: Mood stability and behaviors Sobriety Plan of Treatment: Follow up with your PCP, psychiatric provider and other outpatient providers regarding above concerns Take medications as prescribed Assessment: Patient has insight and demonstrates good judgment in terms of wanting to pursue treatment. Patient has a safety plan that includes presenting to the closest ER or calling 911 if feeling unsafe. Discharge Date/Time: 11/07/24 11:01
[2024-11-06] MEDS: Albuterol Sulfate 90 MCG 8 GM INHALER 2 PUFF INHALE (17:42)
[2024-11-06 20:00] VITALS: BP 129/72; PULSE 70; RESP 14; TEMP 37.2; O2SAT 98
[2024-11-06] MEDS: Magnesium Oxide 400 MG TABLET PO (20:21)
[2024-11-06] MEDS: amLODIPine Besylate 5 MG TABLET PO (20:22)
[2024-11-06] MEDS: Ketotifen Fumarate 0.025% Oph 5 ML DRPBTL 1 DROP EYE-BOTH (20:24)
[2024-11-07] MEDS: Lidocaine 5 % Ointment 35 GM 1 APPL TOPICAL (04:20)
[2024-11-07 07:25] VITALS: BP 132/61; PULSE 59; RESP 14; TEMP 36.5; O2SAT 98
[2024-11-07] MEDS: Dextroamphetamine/Amphetamine XR 10 MG CAP.ER.24H 20 MG PO (08:05)
[2024-11-07] MEDS: Cyanocobalamin (Vitamin B-12) 500 MCG TABLET PO (08:05)
[2024-11-07] MEDS: Calcium Oyster Shell Elemental 500 MG TABLET PO (08:05)
[2024-11-07] MEDS: Acetaminophen 325 MG TABLET 975 MG PO (08:06)
[2024-11-07] MEDS: Baclofen 10 MG TABLET PO (08:06)
[2024-11-07] MEDS: hydrOXYzine HCL 25 MG TABLET PO (08:06)
[2024-11-07] MEDS: atenoloL 25 MG TABLET PO (08:07)
== END 2024-11-07 11:01 | disposition home or self-care (01) | DRG 885 ==
PROVIDERS: Clinical Nurse Specialist Psychiatric/Mental Health, Adult; Admitting Provider Psychiatry & Neurology Psychiatry; PCP Internal Medicine; Responsible Provider Registered Nurse; Visit Provider Psychiatry & Neurology Psychiatry
DX: F33.9 Major depressive disorder, recurrent, unspecified (principal); E78.5 Hyperlipidemia, unspecified; F17.210 Nicotine dependence, cigarettes, uncomplicated; Z71.6 Tobacco abuse counseling; F41.1 Generalized anxiety disorder; F60.3 Borderline personality disorder; F90.9 Attention-deficit hyperactivity disorder, unspecified type; F10.90 Alcohol use, unspecified, uncomplicated; M79.7 Fibromyalgia; M06.9 Rheumatoid arthritis, unspecified; M85.80 Other specified disorders of bone density and structure, unspecified site; G89.29 Other chronic pain; I10 Essential (primary) hypertension; Z79.899 Other long term (current) drug therapy
CPT/HCPCS: 36415; 80061; 82607; 82746; 83036; 83735; 84439; 84443

== ENCOUNTER → 2024-11-01 21:07 | Outpatient (BNV) | payer MEDICAID, SELFPAY | PROVIDERS: Admitting Provider Psychiatry & Neurology Psychiatry; PCP Internal Medicine; Responsible Provider Registered Nurse; Visit Provider Nurse Practitioner Family | DX: E78.5 Hyperlipidemia, unspecified (principal) | CPT/HCPCS: 99232 ==

== ENCOUNTER → 2024-11-01 21:07 | Outpatient (BNV) | payer OTHER, SELFPAY | PROVIDERS: Admitting Provider Psychiatry & Neurology Psychiatry; PCP Internal Medicine; Responsible Provider Registered Nurse; Visit Provider Registered Nurse | DX: F33.2 Major depressive disorder, recurrent severe without psychotic features (principal); F60.3 Borderline personality disorder; F41.1 Generalized anxiety disorder; F90.9 Attention-deficit hyperactivity disorder, unspecified type; F10.90 Alcohol use, unspecified, uncomplicated | CPT/HCPCS: 90792; 99231; 99232 ==